=== PATIENT | female | born 1995 | race Caucasian/White ===

== ENCOUNTER 2020-02-01 19:38 | Inpatient (IN) ==
[2020-02-01 20:23] LABS: URINE SOURCE CLEAN CATCH
[2020-02-01 20:31] LABS: BILIRUBIN URINE NEGATIVE (NEGATIVE); BLOOD URINE MODERATE (NEGATIVE); COLOR YELLOW; GLUCOSE URINE NEGATIVE (NEGATIVE); KETONE URINE NEGATIVE (NEGATIVE); LEUKOCYTES URINE LARGE (NEGATIVE); NITRITE URINE NEGATIVE (NEGATIVE); PROTEIN URINE NEGATIVE (NEGATIVE); SP GRAVITY URINE 1.017; TURBIDITY URINE CLEAR (CLEAR); UROBILINOGEN URINE NORMAL (NORMAL)
--- NOTE | 2020-02-01 20:38 | PROVIDER DOCUMENTATION ---
HPI-Female /OB/Breast - General Chief Complaint: OB <20 weeks Stated Complaint: 7WKS PREG/CRAMPING Time Seen by Provider: 02/01/20 20:14 Source: reports: patient Allergies/Adverse Reactions: Patient Allergies Allergy/AdvReac Type Severity Reaction Status Date / Time No Known Allergies Allergy Verified 02/01/20 22:43 Home Medications: Home Medication List Medication Instructions Recorded Confirmed Last Taken Type NK [No Home Medications] 02/01/20 02/01/20 Unknown History - History of Present Illness-Female /OB Nature of Presenting Problem: Patient is a 25 yof who c/o lower abdominal cramping that began today. Pain worse when urinating. States she has been spotting the entire and this has not worsened. Reports she is 7 weeks , . Denies any other complaints. Pt non-toxic. Review of Systems - Adult - REVIEW OF SYSTEMS - ADULT Constitutional: reports: no symptoms reported. denies: chills, fever Eyes: reports: no symptoms reported Ears, Nose, Mouth & Throat: reports: no symptoms reported Cardiovascular: reports: no symptoms reported Respiratory: reports: no symptoms reported Gastrointestinal: reports: see HPI, abdominal pain Genitourinary: reports: see HPI. denies: discharge Musculoskeletal: reports: no symptoms reported Integumentary: reports: no symptoms reported Neurological: reports: no symptoms reported Psychiatric: reports: no symptoms reported Endocrine: reports: no symptoms reported Hematologic/Lymphatic: reports: no symptoms reported Allergic/Immunologic: reports: no symptoms reported All Other Systems: Reviewed and Negative Past History - Adult - PAST MEDICAL HISTORY-ADULT Review of Records: reports: Nursing Assessment Review, Medications Reviewed, Social history reviewed & non-contributory. Major Childhood Illnesses: reports: denies history Cardiovascular: reports: denies history Respiratory: reports: denies history Gastrointestinal: reports: denies history Obstetrical/Gynecological: reports: other (PCOS) Genitourinary: reports: denies history Musculoskeletal: reports: denies history Neurological: reports: denies history Psychiatric: reports: denies history Endocrine/Immune: reports: denies history Other Conditions: reports: denies history - PRIOR SURGERIES/PROCEDURES Surgical/Procedure History: reports: cholecystectomy - IMMUNIZATION STATUS Childhood Immunizations: See Nurse Assessment Flu Vaccine: See Nurse Assessment - FAMILY HISTORY Family History: reviewed, not pertinent - SOCIAL HISTORY Smoking: cigarettes, less than 1 pack/day Physical Exam-General - PHYSICAL EXAM-ADULT Initial Vital Signs Reviewed: Yes - CONSTITUTIONAL General Appearance: alert, mild distress (in pain). negative: lethargic, slow to respond - EYES Eyes: PERRL/EOMI, pink conjunctivae - HEAD, EARS, NOSE, MOUTH & THROAT HENMT: normocephalic/atraumatic, moist mucous membranes - NECK Neck: full range of motion, supple, normal inspection - RESPIRATORY Respiratory: chest non-tender, lungs clear, normal breath sounds, no pleuratic chest pain, no respiratory distress, no accessory muscle use - CARDIOVASCULAR Cardiovascular: normal peripheral pulses, regular rate, rhythm, no gallop, no murmur - GASTROINTESTINAL (ABDOMEN) Abdominal Exam: normal bowel sounds, soft. negative: distended, guarding, rigid, rebound, tenderness (all across lower abdomen) - MUSCULOSKELETAL Back Exam: normal inspection Extremity: normal range of motion, non-tender, normal gait, normal inspection - SKIN Integumentary: normal color, warm/dry. negative: cyanosis, diaphoresis, jaundice, mottled, pallor - NEUROLOGIC Neurologic: grossly normal, no motor/sensory deficits - PSYCHIATRIC Psych/Mental Status: normal mood/affect, normal thought content, normal thought process, oriented x 3 Progress - PLAN OF CARE/RESULTS Progress/Plan/Lab Results: Vital Signs - 8 hr 02/01/20 20:00 02/01/20 23:13 02/02/20 00:36 Temperature 97.5 F L 98.6 F Pulse Rate 85 65 79 Respiratory Rate 18 16 15 Blood Pressure 105/69 123/68 117/80 O2 Sat by Pulse Oximetry 99 98 100 Bedside Urine ED: Urine Bedside Start: 02/01/20 20:16 Freq: ORDERED Status: Active Protocol: Activity Type Activity Date Activity User E-Sign Co-Sign Detail Recorded Client Recorded Date Recorded By Document 02/01/20 20:16 [id number] 02/01/20 20:18 [id number] 02/01/20 20:16 Point of Care [Bedside Point of Care] -Lot # [id number] - Results Positive -Control Line Visible? Yes Laboratory Results - last 24 hr 02/01/20 02/01/20 02/01/20 20:09 21:30 21:30 WBC RBC Hgb Hct MCV MCH MCHC RDW Std Deviation Plt Count MPV Immature Gran % (Auto) Neut % (Auto) Lymph % (Auto) [place] % (Auto) Eos % (Auto) Baso % (Auto) Immature Gran # (Auto) Neut # (Auto) Lymph # (Auto) [place] # (Auto) Eos # (Auto) Baso # (Auto) Sodium Potassium Chloride Carbon Dioxide Anion Gap BUN Creatinine Estimated GFR/1.73 m2 BUN/Creatinine Ratio Glucose Calculated Osmolality Calcium Total Bilirubin AST ALT Alkaline Phosphatase Total Protein Albumin Globulin Albumin/Globulin Ratio Lipase Ser , Semi-Qnt 07646.0 Urine Source CLEAN CATCH Urine Color YELLOW Urine Turbidity CLEAR Urine pH 6.0 Ur Specific [place] 1.017 Urine Protein NEGATIVE Ur Glucose (Stick) NEGATIVE Ur Ketones (Stick) NEGATIVE Urine Blood MODERATE A Urine Nitrite NEGATIVE Urine Bilirubin NEGATIVE Urobilinogen Dipstick NORMAL Urine Leukocytes LARGE A Urine WBC (Auto) 10-20 A Urine RBC (Auto) <10 U Epithel Cells (Auto) <10 Urine Bacteria (Auto) NEGATIVE Urine Crystals NONE SEEN Small Round Cells NONE SEEN Urine Casts NONE SEEN Urine Trichomonas PRESENT Urine Yeast-like Cells NONE SEEN Blood Type A POSITIVE 02/01/20 02/01/20 21:30 21:30 WBC 18.10 H RBC 4.24 Hgb 13.1 Hct 39.7 MCV 93.6 MCH 30.9 MCHC 33.0 RDW Std Deviation 12.2 Plt Count 386 MPV 9.7 Immature Gran % (Auto) 0.3 Neut % (Auto) 62.9 Lymph % (Auto) 29.5 [place] % (Auto) 5.5 Eos % (Auto) 1.6 Baso % (Auto) 0.2 Immature Gran # (Auto) 0.06 H Neut # (Auto) 11.38 H Lymph # (Auto) 5.34 H [place] # (Auto) 1.00 H Eos # (Auto) 0.29 Baso # (Auto) 0.03 Sodium 137 Potassium 3.9 Chloride 102 Carbon Dioxide 19 L Anion Gap 16 BUN 11 Creatinine 0.5 Estimated GFR/1.73 m2 > 60 BUN/Creatinine Ratio 22 Glucose 98 Calculated Osmolality 273 Calcium 9.4 Total Bilirubin 0.18 L AST 16 ALT 15 Alkaline Phosphatase 61 Total Protein 7.6 Albumin 3.9 Globulin 3.7 Albumin/Globulin Ratio 1.1 Lipase 27 Ser , Semi-Qnt Urine Source Urine Color Urine Turbidity Urine pH Ur Specific [place] Urine Protein Ur Glucose (Stick) Ur Ketones (Stick) Urine Blood Urine Nitrite Urine Bilirubin Urobilinogen Dipstick Urine Leukocytes Urine WBC (Auto) Urine RBC (Auto) U Epithel Cells (Auto) Urine Bacteria (Auto) Urine Crystals Small Round Cells Urine Casts Urine Trichomonas Urine Yeast-like Cells Blood Type Orders Category Date Time Status ED: Urine Bedside ORDERED Care 02/01/20 20:16 Active NPO Diet 02/01/20 20:16 Active US OBS COMPLETE < 14 WKS [US] Stat Exams 02/01/20 20:41 Taken pelvic [US PELVIC NON-OB COMPLETE] [US] Stat Exams 02/01/20 22:48 Ordered ABORH [BBK] Stat Lab 02/01/20 21:30 Completed CBC WITH DIFF [HEME] Stat Lab 02/01/20 21:30 Completed COMPREHENSIVE METABOLIC PANEL [CHEM] Stat Lab 02/01/20 21:30 Completed LIPASE [CHEM] Stat Lab 02/01/20 21:30 Completed QUANT TEST Stat Lab 02/01/20 21:30 Completed URINALYSIS [URINALYSIS] Stat Lab 02/01/20 20:09 Completed URINE MANUAL MICROSCOPIC [URINALYSIS] Stat Lab 02/01/20 20:09 Completed 0.9% Sodium Chloride Inj [Ns] 1,000 ml Med 02/02/20 00:30 Active IV 999 mls/hr Acetaminophen [Tylenol] Med 02/01/20 20:40 Discontinued 1,000 mg PO NOW ONE CefTRIAXONE [Rocephin] 1 gm Med 02/01/20 20:41 Discontinued 0.9% Sodium Chloride Inj [Ns] 50 ml IV NOW Ns + KCl 20 Meq 1,000 ml Med 02/02/20 00:36 Discontinued .ROUTE As directed Abd Pain/OB <20 weeks Stat Oth 02/01/20 20:16 Ordered Result Diagrams: 02/01/20 21:30 02/01/20 21:30 - REASSESSMENT Reassessment #1 Time Reassessed: 00:31 Status: other (US tech sees live ectopic on US- Dr. Madrid aware. Pt aware of OB consult and US result.) Reassessment #2 Time Reassessed: 00:40 Status: other (Dr. Madrid at bedside.) - CONSULTS/PCP/HOSPITALIST Notification #1 *Consult/PCP/Hospitalist*: Dr. Madrid Time Discussed: 00:27 Reason/Comments: ectopic Consult Disposition: Will see in ED (Dr. Madrid to come see pt.) Departure - Departure Date of Disposition Decision: 02/02/20 Time of Disposition Decision: 00:32 DIAGNOSIS: Ectopic Qualifiers: Location of ectopic : ovarian Intrauterine status: without intrauterine Laterality: left Qualified Code(s): O00.202 - Left ovarian without intrauterine Disposition: STILL A PATIENT 30 Certified Medical Emergency: Emergent Condition: Serious Referrals and Follow-Ups: None,PCP [Primary Care Provider] - - Critical Care Note This patient required my direct & personal management of CC.: No Attestation - Physician/ MACY Attestation Patient care was provided by Advanced Practice Provider:: Yes Advanced Practice Provider:: Palmer Wong Advanced Practice Provider documentation review:: The Mid-level provider documentation, treatment plan and medical decision making was reviewed by the physician who agrees with all treatment and medical decision making by the P. The physician spent face to face time with patient:: No Advanced Practice Provider documentation review:: Supervising physician onsite and consulted in the evaluation and care of this patient. The physician did not have a face to face encounter with the patient.
[2020-02-01] MEDS ORDERED: TYLENOL PO ONE (20:40)
[2020-02-01] MEDS ORDERED: ROCEPHIN 1 GM in NS 50 ML IV ONE (20:41)
[2020-02-01 20:48] LABS: UR EPITHELIAL CELLS <10 /HPF (<10); URINE BACTERIA NEGATIVE /HPF; URINE RBC <10 /HPF (<10); URINE TRICHOMONAS PRESENT
[2020-02-01 20:49] LABS: URINE CASTS NONE SEEN; URINE CRYSTALS NONE SEEN; URINE SMALL ROUND CELLS NONE SEEN; URINE YEAST NONE SEEN
[2020-02-01 21:47] LABS: BASO# 0.03 X1000 (0.0-0.2); BASO% 0.2 % (0.0-0.8); EOS# 0.29 X1000 (0.0-0.7); EOS% 1.6 % (0.0-10.0); HEMATOCRIT 39.7 % (37.0-47.0); HEMOGLOBIN 13.1 g/dL (12.0-16.0); IMM GRAN# 0.06 X1000 (0.0-0.04); IMM GRAN% 0.3 % (0.0-0.5); LYMPH# 5.34 X1000 (1.2-3.4); LYMPH% 29.5 % (20.5-51.1); MCH 30.9 PG (27-31); MCV 93.6 FL (81-99); MONO% 5.5 % (1.7-9.3); MPV 9.7 FL (7.4-10.4); NEUT# 11.38 X1000 (1.4-6.5); NEUT% 62.9 % (42.2-75.2); PLT 386 X1000 (130-400); RBC 4.24 XMIL (4.2-5.4); RDW 12.2 % (11.5-14.5)
[2020-02-01 23:00] LABS: AGAP 16; ALB/GLOB RATIO 1.1; ALBUMIN 3.9 g/dL (3.5-5.0); ALKALINE PHOSPHATASE 61 U/L (32-104); BUN 11 mg/dL (8-22); CALCIUM 9.4 mg/dL (8.8-10.2); CHLORIDE 102 mmol/L (98-107); COSMO 273; CREATININE 0.5 mg/dL (0.5-0.9); ESTIMATED GFR > 60; GLUCOSE 98 mg/dL (70-104); GOT 16 U/L (10-30); GPT 15 U/L (10-36); LIPASE 27 U/L (13-60); POTASSIUM 3.9 mmol/L (3.5-5.1); SODIUM 137 mmol/L (136-145); TCO2 19 mmol/L (25-35); TOTAL BILIRUBIN 0.18 mg/dL (0.20-1.00); TOTAL PROTEIN 7.6 g/dL (6.3-8.3)
[2020-02-02] MEDS ORDERED: NS 1,000 ML IV ONE (00:30)
[2020-02-02] MEDS ORDERED: NS + KCL 20 MEQ 1,000 ML ONE (00:36)
[2020-02-02] MEDS ORDERED: NORCURON ONE (01:11)
[2020-02-02] MEDS ORDERED: SODIUM CHLORIDE 0.9% 10 ML ONE (01:11)
[2020-02-02] MEDS ORDERED: DIPRIVAN 1% ONE (01:11)
[2020-02-02] MEDS ORDERED: VERSED ONE (01:11)
[2020-02-02] MEDS ORDERED: QUELICIN (DOSE) ONE (01:11)
[2020-02-02] MEDS ORDERED: FENTANYL ONE (01:11)
[2020-02-02] MEDS ORDERED: SENSORCAINE-MPF 0.5%/EPI 1:200,000 ONE (01:28)
[2020-02-02] MEDS ORDERED: LR 1,000 ML ONE ×2 (01:29→03:23)
[2020-02-02] MEDS ORDERED: DECADRON ONE (01:59)
[2020-02-02] MEDS ORDERED: ZOFRAN ONE (01:59)
[2020-02-02] MEDS ORDERED: ROBINUL ONE (02:22)
[2020-02-02] MEDS ORDERED: NEOSTIGMINE ONE (02:22)
[2020-02-02] MEDS ORDERED: EPHEDRINE ONE (02:26)
[2020-02-02] MEDS: DILAUDID ONE ×2 (02:57→03:01)
[2020-02-02] MEDS ORDERED: NORCO-10 ONE (03:16)
[2020-02-02] MEDS ORDERED: NORCO-5 PO PRN (04:08)
[2020-02-02] MEDS ORDERED: LR 1,000 ML IV SCH (05:00)
--- NOTE | 2020-02-02 05:31 | HISTORY AND PHYSICAL ---
HISTORY OF PRESENT ILLNESS: The patient is a 25-year-old 3, para 1, who presents to the emergency room with lower abdominal pain that began earlier in the day worsening over the course of the day. She was noted to be about 7-1/2 weeks . She had an ultrasound in the emergency room which indicated an empty uterus. She had a 3 to 4 cm gestational sac with a pole and a heartbeat in the left adnexa, and free fluid. Her beta HCG 13,000. PAST MEDICAL HISTORY: Pertinent for PCOS. PAST SURGICAL HISTORY: CCK and section. MEDICATIONS: vitamins. ALLERGIES TO MEDICATIONS: None. SOCIAL HISTORY: Positive for smoking. No alcohol or drugs. OB HISTORY: One full-term section, one first trimester miscarriage. OPERATIONS LIAISON HISTORY: Pertinent for no STDs. Normal Paps. REVIEW OF SYSTEMS: Negative for chest pain, shortness of breath, or headache. PHYSICAL EXAMINATION: GENERAL: This is a well-developed, well-nourished woman appearing her stated age. HEENT: Grossly normal. LUNGS: Unlabored breathing. HEART: Regular rate and rhythm. ABDOMEN: Protuberant, obese, and tender throughout particularly on the left lower quadrant. No rebound or guarding. EXTREMITIES: Without clubbing, cyanosis, or edema. ASSESSMENT: A 25-year-old at 7-1/2 weeks with a left ectopic that has heart motion. 1. She is not a candidate for methotrexate therapy given the heart motion and the beta of 13,000. 2. Planned laparoscopic evaluation, evacuation of hemoperitoneum, excision of ectopic , and given the free fluid most likely salpingectomy. 3. I discussed risks, complications, benefits, and alternatives with the patient and her partner, and both agreed to proceed with same.
--- NOTE | 2020-02-02 06:09 | OPERATIVE NOTE ---
PROCEDURE DATE: 02/02/2020 PROCEDURES: 1. Diagnostic laparoscopy. 2. Evacuation of hemoperitoneum. 3. Excision of left fallopian tube. ANESTHESIA: General. ESTIMATED BLOOD LOSS: 500 mL of which 100 is intraoperative and 400 hemoperitoneum. COMPLICATIONS: None. FINDINGS: Left ectopic , 400 mL hemoperitoneum. Remainder of pelvis nl. DESCRIPTION OF PROCEDURE: After risks, complications, benefits, and alternatives were explained, the patient was taken to the operating room with fluids running. General anesthesia was obtained. The patient was prepped and draped in the lithotomy position. A Stupil uterine manipulator was placed in the cervix, and the attention was turned to the abdomen. A 5 mm skin incision was made in the umbilical fold, and a 5 mm trocar was passed into the abdomen under direct visualization with the laparoscope. The abdomen was insufflated with CO2 gas and the patient was placed in steep Trendelenburg. A second incision 2 cm above the pubic bone in the midline was made for a 10 mm trocar which was passed into the abdomen under direct visualization with laparoscope. A survey of the patient's pelvis revealed the above findings. A third 5 mm port was placed 2 cm above and 2 cm medial to the iliac crest under direct visualization and transillumination with laparoscope. The fallopian tube proximal to the ectopic was grasped, and incised with the LigaSure cautery. The mesial salpinx along the remainder of the fallopian tube was incised in segments until the specimen was excised. The specimen was placed in the anterior cul-de-sac, and the suction last picker was grasped to irrigate the fluid from the cul-de-sac and inspect the area of excision along the left adnexa. There was a small bleeder on the mesial salpinx which was cauterized. The patient's excision site was observed under high and low pressure, and hemostasis was reassuring. An Endo pouch was placed through the 10 mm port. The specimen was placed in the Endopouch, and the Endopouch was brought through the incision and passed off for pathology. Further suction irrigation removed all clot and debris in the cul-de-sac. The operative site was inspected once again under high and low pressure, and found to be completely hemostatic. The patient was taken out of Trendelenburg. The gas was desufflated from the abdomen and the instruments removed. The 10 mm port fascia was closed with 0 Vicryl on a UR6. The skin was then closed with 4-0 Vicryl. The Hulka was removed from the vagina. The patient was awoken from anesthesia and taken to recovery in stable condition. [facility]
--- NOTE | 2020-02-02 06:44 | OB/GYN PROGRESS NOTE ---
Progress Note [employer] - . Patient Problems: Current Active Problems Problem Status Onset Ectopic Acute UTI (urinary tract infection) Acute [employer] Progress Note: Vital Signs - 24 hr 02/01/20 20:00 02/01/20 23:13 02/02/20 00:36 Temperature 97.5 F L 98.6 F Pulse Rate 85 65 79 Respiratory Rate 18 16 15 Blood Pressure 105/69 123/68 117/80 Blood Pressure [Left Arm] O2 Sat by Pulse Oximetry 99 98 100 02/02/20 01:28 02/02/20 02:53 02/02/20 03:00 Temperature 97.8 F 98.2 F Pulse Rate 73 102 H 90 Respiratory Rate 15 16 12 Blood Pressure 120/60 120/60 Blood Pressure [Left Arm] 111/65 127/72 O2 Sat by Pulse Oximetry 100 97 97 02/02/20 03:06 02/02/20 03:10 02/02/20 03:20 Temperature Pulse Rate 87 80 75 Respiratory Rate 12 17 20 Blood Pressure Blood Pressure [Left Arm] 105/38 108/58 102/58 O2 Sat by Pulse Oximetry 96 99 100 02/02/20 03:40 02/02/20 04:02 Temperature 97.2 F L Pulse Rate 77 87 Respiratory Rate 18 Blood Pressure 109/52 113/59 Blood Pressure [Left Arm] O2 Sat by Pulse Oximetry 99 Bedside Urine ED: Urine Bedside Start: 02/01/20 20:16 Freq: ORDERED Status: Complete Protocol: Activity Type Activity Date Activity User E-Sign Co-Sign Detail Recorded Client Recorded Date Recorded By Document 02/01/20 20:16 [id number] 02/01/20 20:18 [id number] Edit Status 02/02/20 04:16 [id number] Active=>Complete [id number] 02/02/20 04:16 [id number] 02/01/20 20:16 Point of Care [Bedside Point of Care] -Lot # [id number] - Results Positive -Control Line Visible? Yes Laboratory Results - last 24 hr 02/01/20 02/01/20 02/01/20 20:09 21:30 21:30 WBC RBC Hgb Hct MCV MCH MCHC RDW Std Deviation Plt Count MPV Immature Gran % (Auto) Neut % (Auto) Lymph % (Auto) [place] % (Auto) Eos % (Auto) Baso % (Auto) Immature Gran # (Auto) Neut # (Auto) Lymph # (Auto) [place] # (Auto) Eos # (Auto) Baso # (Auto) Sodium Potassium Chloride Carbon Dioxide Anion Gap BUN Creatinine Estimated GFR/1.73 m2 BUN/Creatinine Ratio Glucose Calculated Osmolality Calcium Total Bilirubin AST ALT Alkaline Phosphatase Total Protein Albumin Globulin Albumin/Globulin Ratio Lipase Ser , Semi-Qnt 91578.0 Urine Source CLEAN CATCH Urine Color YELLOW Urine Turbidity CLEAR Urine pH 6.0 Ur Specific [place] 1.017 Urine Protein NEGATIVE Ur Glucose (Stick) NEGATIVE Ur Ketones (Stick) NEGATIVE Urine Blood MODERATE A Urine Nitrite NEGATIVE Urine Bilirubin NEGATIVE Urobilinogen Dipstick NORMAL Urine Leukocytes LARGE A Urine WBC (Auto) 10-20 A Urine RBC (Auto) <10 U Epithel Cells (Auto) <10 Urine Bacteria (Auto) NEGATIVE Urine Crystals NONE SEEN Small Round Cells NONE SEEN Urine Casts NONE SEEN Urine Trichomonas PRESENT Urine Yeast-like Cells NONE SEEN Blood Type A POSITIVE 02/01/20 02/01/20 21:30 21:30 WBC 18.10 H RBC 4.24 Hgb 13.1 Hct 39.7 MCV 93.6 MCH 30.9 MCHC 33.0 RDW Std Deviation 12.2 Plt Count 386 MPV 9.7 Immature Gran % (Auto) 0.3 Neut % (Auto) 62.9 Lymph % (Auto) 29.5 [place] % (Auto) 5.5 Eos % (Auto) 1.6 Baso % (Auto) 0.2 Immature Gran # (Auto) 0.06 H Neut # (Auto) 11.38 H Lymph # (Auto) 5.34 H [place] # (Auto) 1.00 H Eos # (Auto) 0.29 Baso # (Auto) 0.03 Sodium 137 Potassium 3.9 Chloride 102 Carbon Dioxide 19 L Anion Gap 16 BUN 11 Creatinine 0.5 Estimated GFR/1.73 m2 > 60 BUN/Creatinine Ratio 22 Glucose 98 Calculated Osmolality 273 Calcium 9.4 Total Bilirubin 0.18 L AST 16 ALT 15 Alkaline Phosphatase 61 Total Protein 7.6 Albumin 3.9 Globulin 3.7 Albumin/Globulin Ratio 1.1 Lipase 27 Ser , Semi-Qnt Urine Source Urine Color Urine Turbidity Urine pH Ur Specific [place] Urine Protein Ur Glucose (Stick) Ur Ketones (Stick) Urine Blood Urine Nitrite Urine Bilirubin Urobilinogen Dipstick Urine Leukocytes Urine WBC (Auto) Urine RBC (Auto) U Epithel Cells (Auto) Urine Bacteria (Auto) Urine Crystals Small Round Cells Urine Casts Urine Trichomonas Urine Yeast-like Cells Blood Type PO check vssaf pain well managed no cx questions answered concerns addressed
--- NOTE | 2020-02-02 07:40 | Diag Imaging Result Doc PS360 ---
EXAM: US OBS COMPLETE < 14 WKS 02/01/2020 HISTORY: 7 weeks preg, low abd pain TECHNIQUE: OB ultrasound transabdominal scan and endovaginal scan COMMENT: There is a relatively small amount of free fluid in the cul-de-sac. There are is no identifiable intrauterine gestation. The endometrial stripe in the fundus is less than 3 mm in thickness. The uterus measures 9 x 4.5 x 4 cm. There is a left adnexal gestational sac with yolk sac and pole with a crown-rump length consistent with a gestational age of six weeks one day and a heart rate of 126 bpm. There are some echoes in the cul-de-sac fluid. IMPRESSION: Left tubal or ovarian live ectopic . Fluid/blood in the cul-de-sac. Electronically signed by Ion Matthews 02/02/2020 7:38 AM
[2020-02-02 11:32] VITALS: BP 104/62
[2020-02-02 12:09] LABS: HEMATOCRIT 35.9 % (37.0-47.0); HEMOGLOBIN 11.5 g/dL (12.0-16.0)
== END 2020-02-02 14:20 | disposition home or self-care (01) | DRG 819 ==
LOC: ED 19:38 → LD 02-02 03:35
PROVIDERS: ADMIT Obstetrics & Gynecology; ATTEND Obstetrics & Gynecology